=== PATIENT | male | born 1955 | race Caucasian/White ===

== ENCOUNTER 2021-01-10 10:55 | Emergency (ER) | payer BC, SELFPAY ==
[2021-01-10] VITALS (9 sets, daily range): BP systolic 131–157; BP diastolic 84–103; PULSE 56–68; RESP 18; TEMP 36.7; O2SAT 96–100
--- NOTE | ~2021-01-10 | CT_ITS ---
EXAMINATION: CT abdomen pelvis w con DATE: 01/10/2021 12:08 INDICATION: Left lower quadrant pain TECHNIQUE: Computed tomography (CT) of the abdomen and pelvis was performed with 100 cc Omnipaque 350 intravenous contrast. The dose-length product was 826.94 mGy-cm. Automated exposure control and iter ative reconstruction technique were employed. COMPARISON: None. FINDINGS: Dependent atelectasis. Heart size normal. Fatty infiltration of the liver. Spleen, pancreas, adrenal glands and kidneys are unremarkable. Nonob structive bowel gas pattern. There is acute uncomplicated proximal sigmoid diverticulitis. No evidenc e for perforation or abscess. No significant vascular abnormality. No lymphadenopathy. Gallbladder is present. No free air or free fluid. IMPRESSION: 1. Acute uncomplicated proximal sigmoid diverticulitis. Reviewed, dictated and finalized at location B.
[2021-01-10 11:31] LABS: Basophils Percent Auto 0.2 % (0.2-1.2); Eosinophils Absolute Auto 0.1 K/mm3 (0-0.3); Eosinophils Percent Auto 0.8 % (0-4.4); Hematocrit 41.4 % (42.0-52.0); Hemoglobin 14.2 g/dL (14.0-18.0); Immature Granulocyte Absolute 0.05 K/mm3 (0.00-0.031); Immature Granulocyte Percent A 0.8 % (0-0.5); Lymphocytes Absolute Auto 1.72 K/mm3 (0.9-3.2); Lymphocytes Percent Auto 28.2 % (18.3-44.2); Mean Corpuscular HGB Conc 34.3 g/dl (32-36); Mean Corpuscular Hemoglobin 31.2 pg (26-34); Mean Platelet Volume 11.6 fl (7.4-10.4); Monocytes Absolute Auto 0.5 K/mm3 (0.1-0.6); Monocytes Percent Auto 7.9 % (2.6-8.5); Neutrophils Absolute Auto 3.8 K/mm3 (1.3-6.7); Neutrophils Percent Auto 62.1 % (45.5-73.1); Platelet Count Result 158 k/mm3 (150-375); Red Blood Count 4.55 M/mm3 (4.6-6.20); Red Cell Distribution Width 13.1 % (11.5-14.5); White Blood Count 6.1 K/mm3 (4.5-10.0)
[2021-01-10 11:42] LABS: Alanine Aminotransferase 93 U/L (4-50); Albumin Level 4.6 g/dL (3.5-5.1); Alkaline Phosphatase 60 U/L (38-126); Anion Gap 4 mmol/L (8-16); Aspartate Amino Transferase 51 U/L (17-59); Bilirubin,Total 0.4 mg/dL (0.2-1.3); Blood Urea Nitrogen 13 mg/dL (9-20); Calcium 9.2 mg/dL (8.4-10.2); Carbon Dioxide 30 mmol/L (22-30); Chloride 106 mmol/L (98-107); Estimated CRCL calculation 77 ml/min; Estimated Glomerular Filt Rate > 60; Glucose 110 mg/dL (75-110); Lipase 64 U/L (23-300); Potassium 4.1 mmol/L (3.4-5.0); Sodium 140 mmol/L (137-145)
--- NOTE | 2021-01-10 12:09 | ED.ABDPAIN ---
HPI - Abdominal Pain General Chief Complaint: Abdominal Pain Stated Complaint: pain in lower abd Time Seen by Provider: 01/10/21 10:58 History of Present Illness HPI narrative: Patient is a 65-year-old male who presents ER with left lower quadrant abdominal pain. Ongoing for 3 days. Sharp nonradiating. No association with diarrhea/constipation. He has had no fevers or chills or sweats. No previous history of diverticulitis or epiploic appendagitis. Has found no alleviating factors. Denies urinary symptoms. Related Data Home Medications Medication Instructions Recorded Confirmed fenofibrate mg 01/10/21 levothyroxine [Synthroid] 01/10/21 omeprazole 01/10/21 rosuvastatin mg 01/10/21 Allergies Allergy/AdvReac Type Severity Reaction Status Date / Time Sulfa (Sulfonamide Allergy Severe DISCOLORATION Verified 01/10/21 11:32 Antibiotics) OF SKIN Penicillins Allergy Unknown Hives Verified 01/10/21 11:32 sulfanilamide Allergy Unknown Hives Verified 01/10/21 11:32 Review of Systems Review of Systems: All systems reviewed & are unremarkable except as noted in HPI and below Constitutional: Constitutional: Denies chills and Denies fever(s) Gastrointestinal: Gastrointestinal: Reports abdominal pain, Denies constipation, Denies diarrhea, Denies nausea and Denies vomiting Genitourinary: Genitourinary: Denies dysuria and Denies urinary frequency PMFSH Past Medical History Medical History (Updated 01/10/21 @ 12:29 by Fransico Hernandez MD) Hypercholesterolemia Hypothyroidism Surgical History Surgical History (Updated 01/10/21 @ 12:12 by Fransico Hernandez MD) H/O hernia repair Social History Social History (Updated 01/10/21 @ 12:12 by Fransico Hernandez MD) Smoking status: Never smoker Alcohol intake: current Exam Narrative: Exam Narrative: GENERAL: Well-appearing, well-nourished, and in no acute distress. HEAD: Normocephalic, atraumatic. CHEST: Clear to auscultation. No respiratory distress. HEART: Regular rate and rhythm. Normal peripheral pulses. ABDOMEN: Soft, moderate tenderness left lower quadrant with guarding, nondistended. EXTREMITIES: Normal range of motion. No edema. SKIN: Warm, dry, no rash. NEURO: Alert and oriented x3. PSYCH: Normal mood and affect. Course Course Emergency Course: Informed of results. Discussed tx plan, d/c home. Vital Signs Vital signs: Vital Signs Temperature 98.0 F 01/10/21 11:01 Pulse Rate 68 01/10/21 11:01 Respiratory Rate 18 01/10/21 11:01 Blood Pressure 154/93 H 01/10/21 11:01 Pulse Oximetry 100 01/10/21 11:01 Temperature 98.0 F 01/10/21 11:01 Pulse Rate 68 01/10/21 11:01 Respiratory Rate 18 01/10/21 11:01 Blood Pressure 154/93 H 01/10/21 11:01 Pulse Oximetry 100 01/10/21 11:01 MDM - Abdominal Pain Lab Data Result diagrams: 01/10/21 11:23 01/10/21 11:23 Labs: Lab Results 01/10/21 01/10/21 Range/Units 11:23 11:23 WBC 6.1 (4.5-10.0) K/mm3 RBC 4.55 L (4.6-6.20) M/mm3 Hgb 14.2 (14.0-18.0) g/dL Hct 41.4 L (42.0-52.0) % MCV 91.0 (80-100) fl MCH 31.2 (26-34) pg MCHC 34.3 (32-36) g/dl RDW 13.1 (11.5-14.5) % Plt Count 158 (150-375) k/mm3 MPV 11.6 H (7.4-10.4) fl Immature Gran % (Auto) 0.8 H (0-0.5) % Neut % (Auto) 62.1 (45.5-73.1) % Lymph % (Auto) 28.2 (18.3-44.2) % Menard % (Auto) 7.9 (2.6-8.5) % Eos % (Auto) 0.8 (0-4.4) % Baso % (Auto) 0.2 (0.2-1.2) % Lymph # (Auto) 1.72 (0.9-3.2) K/mm3 Menard # (Auto) 0.5 (0.1-0.6) K/mm3 Eos # (Auto) 0.1 (0-0.3) K/mm3 Baso # (Auto) 0.0 (0.0-0.1) K/mm3 Abs Immat Gran (auto) 0.05 H (0.00-0.031) K/mm3 Absolute Neuts (auto) 3.8 (1.3-6.7) K/mm3 Absolute Nucleated RBC 0.0 (0.0-0.012) K/mm3 Nucleated RBC % 0.0 (0.0-0.2) % Sodium 140 (137-145) mmol/L Potassium 4.1 (3.4-5.0) mmol/L Chloride 106 (98-107) mmol/L Carbon Dioxide 30 (22-30)
[2021-01-10 12:47] LABS: Add Urine Microscopic? NO; Appearance Urine Clear (Clear); Bilirubin Urine Negative (Negative); Blood Urine Negative (Negative); Color Urine Yellow (Yellow); Glucose Urine UA Negative (Negative); Ketones Urine Negative (Negative); Leukocyte Esterase Ur Negative LEU/UL (Negative); Nitrate Urine Negative (Negative); Protein Urine Negative (Negative); Specific Grav Ur 1.013 (1.001-1.035); Urobilinogen Urine Negative mg/dL (<2.0)
== END 2021-01-10 13:10 | disposition home or self-care (01) ==
PROVIDERS: Emergency Provider Emergency Medicine; PCP Family Medicine
DX: K57.92 Diverticulitis of intestine, part unspecified, without perforation or abscess without bleeding (principal); E03.9 Hypothyroidism, unspecified; E78.5 Hyperlipidemia, unspecified
CPT/HCPCS: 36415; 74177; 80053; 81003; 83690; 85025; 99284; Q9967

== ENCOUNTER 2021-07-20 07:56 | Outpatient (CLI) | payer BC, SELFPAY ==
--- NOTE | ~2021-07-20 | XR_ITS ---
XR lumbar spine 2-3V DATE: 07/20/2021 08:21 INDICATION: Low back pain, right flank pain TECHNIQUE: AP, lateral, coned lateral lumbosacral views COMPARISON: None FINDINGS: Normal alignment of the lumbar spine. No fracture or bone destruction is evident. The lumba r pedicles are intact. There is mild degenerative disc disease at L1-2. There is severe degenerative disc disease at L5-S1. The sacroiliac joints are intact. IMPRESSION: Mild degenerative disc disease at L1 to Severe degenerative disc disease at L5-S1 Reviewed, dictated and finalized at location A.
== END 2021-07-20 07:57 | disposition home or self-care (01) ==
LOC: ANHIMG 08:04
PROVIDERS: PCP Family Medicine; Visit Provider Nurse Practitioner Family
DX: M51.37 Other intervertebral disc degeneration, lumbosacral region (principal); M51.36 Other intervertebral disc degeneration, lumbar region
CPT/HCPCS: 72100

== ENCOUNTER → 2022-07-02 08:58 | Outpatient (CLI) | payer MEDICARE, BC, OTHER, SELFPAY ==
--- NOTE | ~2022-07-02 | US_ITS ---
US right upper quadrant DATE: 07/02/2022 09:20 INDICATION: Abnormal elevation ( TECHNIQUE: Real-time imaging and Doppler analysis COMPARISON: 01/10/2021 CT abdomen pelvis FINDINGS: There is hepatic steatosis. No hepatic or pancreatic space occupying mass lesion is detect ed. Normal hepatopedal portal venous flow direction. There is an approximately 5 mm posterior wall fixed non-mobile echogenic gallbladder filling defect, apparently a small polyp. No mobile filling defects. No gallbladder wall thickening or abnormal per icholecystic fluid collection. The common bile duct measures 5 mm. IMPRESSION: Probable 5 mm gallbladder polyp Hepatic steatosis Reviewed, dictated and finalized at Location A. Reviewed, dictated and finalized at location B.
== END ==
PROVIDERS: PCP Family Medicine; Visit Provider Nurse Practitioner Family
DX: R74.8 Abnormal levels of other serum enzymes (principal); K76.0 Fatty (change of) liver, not elsewhere classified; K82.4 Cholesterolosis of gallbladder
CPT/HCPCS: 76705

== ENCOUNTER 2024-10-09 10:13 | Outpatient (CLI) | payer MEDICARE, OTHER, SELFPAY ==
--- NOTE | ~2024-10-09 | MR_ITS ---
EXAMINATION: MR pelvis wo/w con DATE: 10/09/2024 11:27 INDICATION: Prostate cancer. TECHNIQUE: Magnetic resonance imaging (MRI) of the pelvis was performed without and with 20 mL MultiH ance intravenous contrast. COMPARISON: CT abdomen and pelvis 01/10/2021 FINDINGS: The prostate is moderately enlarged. There are no pathologically enlarged lymph nodes. There is no fr ee intraperitoneal fluid. There is severe lower lumbar spondylosis. IMPRESSION: 1. Moderately enlarged prostate. No evidence of metastatic disease. Reviewed, dictated and finalized at location A. [employer]
== END 2024-10-09 10:14 | disposition home or self-care (01) ==
LOC: ANHIMG 10:16
PROVIDERS: PCP Family Medicine; Visit Provider Radiology Radiation Oncology
DX: C61 Malignant neoplasm of prostate (principal); N40.0 Benign prostatic hyperplasia without lower urinary tract symptoms
CPT/HCPCS: 72197; A9577